=== PATIENT | male | born 1970 | race Caucasian/White ===

== ENCOUNTER 2019-06-05 19:22 | Inpatient (IN) | payer MEDICAID ==
[~2019-06-05] VITALS: Ht 175.3 cm; Wt 73.9 kg
[2019-06-05 19:32] VITALS: BP_SYST 129
[2019-06-05] MEDS ORDERED: VANCOMYCIN HCL 1,000 MG in D5W 250 ML IV ONE (20:00)
[2019-06-05] MEDS ORDERED: NACL 0.9% 1,000 ML IV ONE (20:00)
[2019-06-05] MEDS ORDERED: KETOROLAC TROMETHAMINE 15 MG VIAL IVP ONE (20:00)
[2019-06-05 21:03] LABS: BILIRUBIN,URINE NEGATIVE (NEGATIVE); CLARITY/URINE CLEAR (CLEAR); COLOR,URINE YELLOW (YELLOW); GLUCOSE,URINE NEGATIVE (NEGATIVE); KETONES,URINE NEGATIVE (NEGATIVE); LEUKOCYTE ESTERASE ,URINE NEGATIVE (NEGATIVE); NITRITE, URINE NEGATIVE (NEGATIVE); PH,URINE 5.5 (5.0-8.0); PROTEIN URINE NEGATIVE (NEGATIVE); UROBILINOGEN,URINE 0.2 (0.2-1.0)
[2019-06-05 21:15] LABS: BASOPHILS % (AUTO) 0.2 % (0.0-2.0); EOSINOPHILS # (AUTO) 0.1 K/uL (0.0-0.4); EOSINOPHILS % (AUTO) 0.7 % (0.0-4.0); HEMATOCRIT 31.3 % (36-54); HEMOGLOBIN 10.7 g/dL (14.0-18.0); LYMPHOCYTES # (AUTO) 0.5 K/uL (1.0-5.5); LYMPHOCYTES % (AUTO) 3.7 % (20.5-51.5); MEAN CORPUSCULAR HEMOGLOBIN 30 pg (27-31); MEAN CORPUSCULAR HGB CONC 34 % (32-36); MEAN CORPUSCULAR VOLUME 86 fL (79.0-98.0); MONOCYTES # (AUTO) 0.5 K/uL (0.0-1.0); NEUTROPHILS # (AUTO) 11.2 K/uL (1.8-7.7); NEUTROPHILS % (AUTO) 91.4 % (40.0-70.0); PLATELET COUNT (AUTO) 194 K/uL (130-430); RED BLOOD CELL COUNT(AUTO) 3.64 MIL/uL (4.2-6.2); RED CELL DISTRIBUTION WIDTH 13.7 % (9.0-15.0); WHITE BLOOD COUNT (AUTO) 12.2 K/uL (4.8-10.8)
[2019-06-05 21:16] LABS: BLOOD, URINE TRACE (NEGATIVE)
[2019-06-05 21:33] LABS: BACTERIA,URINE FEW /HPF (None Seen); RBC,URINE 0-3 /HPF (0-3); WBC,URINE NONE SEEN /HPF (0-3)
[2019-06-05 21:33] LABS: CALCIUM 8.1 mg/dL (8.4-11.0); CREATININE 0.84 mg/dL (0.55-1.30); POTASSIUM 3.9 mmol/L (3.5-5.1)
[2019-06-05 21:37] LABS: PROTHROMBIN TIME 9.9 SECS (9.5-12.5)
[2019-06-05 21:39] LABS: ALBUMIN 3.3 g/dL (3.4-4.8); TOTAL BILIRUBIN 0.4 mg/dL (0.0-1.0)
[2019-06-05] MEDS ORDERED: VANCOMYCIN HCL 1000 MG/VIAL IV ONE (23:25)
[2019-06-05] MEDS ORDERED: KETOROLAC TROMETHAMINE 15 MG VIAL ONE (23:29)
[2019-06-05] MEDS ORDERED: MET10 PO (23:50)
[2019-06-06 01:06] VITALS: BP_SYST 105
[2019-06-06] MEDS ORDERED: FLU VACC QS2019-20 36MOS UP/PF 60 MCG/0.5 ML SYRINGE I.M. PRN (02:00)
[2019-06-06] MEDS ORDERED: HYDROcodone/ACETAMIN 5-325 MG TAB (NORCO/ VICODIN) PO PRN (03:00)
[2019-06-06] MEDS ORDERED: ONDANSETRON HCL 4 MG/2 ML VIAL IVP PRN (03:00)
[2019-06-06] MEDS ORDERED: ACETAMINOPHEN 325 MG TABLET PO PRN (03:00)
[2019-06-06] MEDS ORDERED: ALBUTEROL SULFATE 0.083% 2.5 MG/3 ML VIAL.NEB INH PRN (03:00)
[2019-06-06 05:24] VITALS: BP_SYST 134
[2019-06-06] MEDS ORDERED: PIPERACILLIN/TAZO 3.375/DEX-IS 50 ML IV SCH (06:00)
[2019-06-06] MEDS ORDERED: PIPERACILLIN/TAZOBACTAM 3.375 GM/VIAL (ZOSYN) IV ONE (06:32)
[2019-06-06 06:57] LABS: BASOPHILS % (AUTO) 0.5 % (0.0-2.0); EOSINOPHILS # (AUTO) 0.2 K/uL (0.0-0.4); EOSINOPHILS % (AUTO) 3.2 % (0.0-4.0); HEMATOCRIT 28.8 % (36-54); HEMOGLOBIN 9.7 g/dL (14.0-18.0); LYMPHOCYTES # (AUTO) 1.1 K/uL (1.0-5.5); LYMPHOCYTES % (AUTO) 24.4 % (20.5-51.5); MEAN CORPUSCULAR HEMOGLOBIN 29 pg (27-31); MEAN CORPUSCULAR HGB CONC 34 % (32-36); MEAN CORPUSCULAR VOLUME 87 fL (79.0-98.0); MONOCYTES # (AUTO) 0.5 K/uL (0.0-1.0); MONOCYTES % (AUTO) 10.1 % (1.7-9.3); NEUTROPHILS # (AUTO) 2.9 K/uL (1.8-7.7); NEUTROPHILS % (AUTO) 61.8 % (40.0-70.0); PLATELET COUNT (AUTO) 163 K/uL (130-430); RED BLOOD CELL COUNT(AUTO) 3.32 MIL/uL (4.2-6.2); RED CELL DISTRIBUTION WIDTH 13.4 % (9.0-15.0); WHITE BLOOD COUNT (AUTO) 4.7 K/uL (4.8-10.8)
[2019-06-06 07:35] LABS: ALBUMIN 2.7 g/dL (3.4-4.8); CALCIUM 7.8 mg/dL (8.4-11.0); CREATININE 0.77 mg/dL (0.55-1.30); POTASSIUM 3.3 mmol/L (3.5-5.1); TOTAL BILIRUBIN 0.4 mg/dL (0.0-1.0)
[2019-06-06 07:54] VITALS: BP_SYST 103
[2019-06-06] MEDS: ENOXAPARIN SODIUM 40 MG/0.4 ML SYRINGE SUBCUT SCH (08:53)
[2019-06-06] MEDS: METHADONE HCL 10 MG TABLET PO SCH (08:53)
[2019-06-06] MEDS: VANCOMYCIN HCL 1,250 MG in NS 250 ML IV SCH ×2 (08:53→20:14)
[2019-06-06] MEDS: PIPERACILLIN/TAZO 3.375/DEX-IS 50 ML IV SCH ×3 (11:25→23:10)
[2019-06-06 12:32] VITALS: BP_SYST 106
[2019-06-06 16:16] VITALS: BP_SYST 114
[2019-06-06] MEDS: HYDROcodone/ACETAMIN 10-325 MG TAB PO PRN ×2 (17:51→23:11)
[2019-06-06 20:00] VITALS: BP_SYST 114
[2019-06-07 00:06] VITALS: BP_SYST 108
[2019-06-07] MEDS: PIPERACILLIN/TAZO 3.375/DEX-IS 50 ML IV SCH ×4 (05:05→23:31)
[2019-06-07 07:55] VITALS: BP_SYST 127
[2019-06-07] MEDS: METHADONE HCL 10 MG TABLET PO SCH (09:51)
[2019-06-07] MEDS: ENOXAPARIN SODIUM 40 MG/0.4 ML SYRINGE SUBCUT SCH (09:54)
[2019-06-07] MEDS: VANCOMYCIN HCL 1,250 MG in NS 250 ML IV SCH ×2 (09:57→20:31)
[2019-06-07 12:26] VITALS: BP_SYST 125
[2019-06-07] MEDS ORDERED: METHADONE HCL 10 MG TABLET PO ONE (12:30)
[2019-06-07 16:43] VITALS: BP_SYST 133
[2019-06-07] MEDS: LORazepam 2 MG/ML VIAL IVP PRN (23:31)
[2019-06-08 00:43] VITALS: BP_SYST 94
[2019-06-08] MEDS: PIPERACILLIN/TAZO 3.375/DEX-IS 50 ML IV SCH ×3 (05:24→17:02)
[2019-06-08] MEDS: LORazepam 2 MG/ML VIAL IVP PRN (05:24)
[2019-06-08 08:14] VITALS: BP_SYST 111
[2019-06-08] MEDS: VANCOMYCIN HCL 1,250 MG in NS 250 ML IV SCH ×2 (09:04→20:57)
[2019-06-08] MEDS: ENOXAPARIN SODIUM 40 MG/0.4 ML SYRINGE SUBCUT SCH (09:05)
[2019-06-08] MEDS: METHADONE HCL 10 MG TABLET PO SCH (09:22)
[2019-06-08 12:21] VITALS: BP_SYST 114
[2019-06-08 16:42] VITALS: BP_SYST 119
[2019-06-08 20:00] VITALS: BP_SYST 116
[2019-06-09 00:30] VITALS: BP_SYST 131
[2019-06-09] MEDS: PIPERACILLIN/TAZO 3.375/DEX-IS 50 ML IV SCH ×4 (00:43→17:18)
[2019-06-09] MEDS: ENOXAPARIN SODIUM 40 MG/0.4 ML SYRINGE SUBCUT SCH (08:38)
[2019-06-09] MEDS: METHADONE HCL 10 MG TABLET PO SCH (08:42)
[2019-06-09] MEDS: VANCOMYCIN HCL 1,250 MG in NS 250 ML IV SCH ×2 (08:53→21:58)
[2019-06-09] MEDS: LORazepam 2 MG/ML VIAL IVP PRN (08:53)
[2019-06-09 12:36] VITALS: BP_SYST 104
[2019-06-09 16:08] VITALS: BP_SYST 107
[2019-06-09 16:54] VITALS: BP_SYST 107
[2019-06-09 19:55] VITALS: BP_SYST 108
[2019-06-10] MEDS: PIPERACILLIN/TAZO 3.375/DEX-IS 50 ML IV SCH ×4 (00:25→18:01)
[2019-06-10 00:48] VITALS: BP_SYST 108
[2019-06-10 06:48] LABS: BASOPHILS % (AUTO) 0.5 % (0.0-2.0); EOSINOPHILS # (AUTO) 0.3 K/uL (0.0-0.4); EOSINOPHILS % (AUTO) 5.4 % (0.0-4.0); HEMATOCRIT 32.9 % (36-54); HEMOGLOBIN 11.1 g/dL (14.0-18.0); LYMPHOCYTES # (AUTO) 1.8 K/uL (1.0-5.5); LYMPHOCYTES % (AUTO) 32.8 % (20.5-51.5); MEAN CORPUSCULAR HEMOGLOBIN 29 pg (27-31); MEAN CORPUSCULAR HGB CONC 34 % (32-36); MEAN CORPUSCULAR VOLUME 87 fL (79.0-98.0); MONOCYTES # (AUTO) 0.5 K/uL (0.0-1.0); MONOCYTES % (AUTO) 9.4 % (1.7-9.3); NEUTROPHILS # (AUTO) 2.9 K/uL (1.8-7.7); NEUTROPHILS % (AUTO) 51.9 % (40.0-70.0); PLATELET COUNT (AUTO) 228 K/uL (130-430); RED BLOOD CELL COUNT(AUTO) 3.79 MIL/uL (4.2-6.2); RED CELL DISTRIBUTION WIDTH 13.7 % (9.0-15.0); WHITE BLOOD COUNT (AUTO) 5.5 K/uL (4.8-10.8)
[2019-06-10 07:18] LABS: ALBUMIN 2.8 g/dL (3.4-4.8); CALCIUM 7.6 mg/dL (8.4-11.0); CREATININE 0.95 mg/dL (0.55-1.30); POTASSIUM 4.4 mmol/L (3.5-5.1); TOTAL BILIRUBIN 0.3 mg/dL (0.0-1.0)
[2019-06-10] MEDS: METHADONE HCL 10 MG TABLET PO SCH (10:22)
[2019-06-10] MEDS: ENOXAPARIN SODIUM 40 MG/0.4 ML SYRINGE SUBCUT SCH (10:27)
[2019-06-10 11:29] VITALS: BP_SYST 116
[2019-06-10] MEDS: VANCOMYCIN HCL 1,250 MG in NS 250 ML IV SCH ×2 (13:39→22:32)
[2019-06-10 15:44] VITALS: BP_SYST 123
[2019-06-10 19:00] VITALS: BP_SYST 124
[2019-06-10 20:00] VITALS: BP_SYST 124
[2019-06-10] MEDS ORDERED: LORazepam 2 MG/ML VIAL IVP ONE (23:15)
[2019-06-11] MEDS: PIPERACILLIN/TAZO 3.375/DEX-IS 50 ML IV SCH ×5 (00:18→23:52)
[2019-06-11 00:28] VITALS: BP_SYST 105
[2019-06-11] MEDS: VANCOMYCIN HCL 1,250 MG in NS 250 ML IV SCH ×2 (09:04→20:46)
[2019-06-11] MEDS: METHADONE HCL 10 MG TABLET PO SCH (09:06)
[2019-06-11] MEDS: ENOXAPARIN SODIUM 40 MG/0.4 ML SYRINGE SUBCUT SCH (09:13)
[2019-06-11 12:46] VITALS: BP_SYST 100
[2019-06-11 16:32] VITALS: BP_SYST 108
[2019-06-11 20:00] VITALS: BP_SYST 116
[2019-06-12] VITALS: BP_SYST 120
[2019-06-12] MEDS: PIPERACILLIN/TAZO 3.375/DEX-IS 50 ML IV SCH ×2 (05:36→12:59)
[2019-06-12 09:08] VITALS: BP_SYST 129
[2019-06-12] MEDS: VANCOMYCIN HCL 1,250 MG in NS 250 ML IV SCH (09:15)
[2019-06-12] MEDS: METHADONE HCL 10 MG TABLET PO SCH (09:15)
[2019-06-12] MEDS: ENOXAPARIN SODIUM 40 MG/0.4 ML SYRINGE SUBCUT SCH (09:27)
[2019-06-12 10:38] VITALS: BP_SYST 129
[2019-06-12 12:15] VITALS: BP_SYST 122
[2019-06-12] MEDS ORDERED: ceFAZolin SODIUM 1 GM in D5W 50 ML IV SCH (14:00)
[2019-06-12 16:10] VITALS: BP_SYST 106
[2019-06-12 20:00] VITALS: BP_SYST 114
[2019-06-13 00:35] VITALS: BP_SYST 106
[2019-06-13] MEDS: ceFAZolin SODIUM 1 GM in D5W 50 ML IV SCH ×2 (02:28→05:20)
[2019-06-13 08:00] VITALS: BP_SYST 117
[2019-06-13] MEDS: METHADONE HCL 10 MG TABLET PO SCH (08:43)
[2019-06-13] MEDS: ENOXAPARIN SODIUM 40 MG/0.4 ML SYRINGE SUBCUT SCH (08:44)
[2019-06-13] MEDS ORDERED: CEPH-568 PO (10:36)
[2019-06-13 11:31] VITALS: BP_SYST 109
[2019-06-13 12:28] VITALS: BP_SYST 111
== END 2019-06-13 13:13 | disposition home or self-care (01) | DRG 720 ==
LOC: SED 19:22 → SMU 06-06 00:18
PROVIDERS: ADMIT Internal Medicine Hospice and Palliative Medicine; ATTEND Internal Medicine Hospice and Palliative Medicine
PROC: 06HY33Z Insertion of Infusion Device into Lower Vein, Percutaneous Approach (ICD-10-PCS; principal; 2019-06-05)
PROC: B54CZZA Ultrasonography of Left Lower Extremity Veins, Guidance (ICD-10-PCS; 2019-06-05)
DX: A41.9 Sepsis, unspecified organism (principal); E43 Unspecified severe protein-calorie malnutrition; E11.51 Type 2 diabetes mellitus with diabetic peripheral angiopathy without gangrene; F11.20 Opioid dependence, uncomplicated; E87.1 Hypo-osmolality and hyponatremia; F15.20 Other stimulant dependence, uncomplicated; L03.115 Cellulitis of right lower limb; E78.5 Hyperlipidemia, unspecified; F17.210 Nicotine dependence, cigarettes, uncomplicated; B19.20 Unspecified viral hepatitis C without hepatic coma; G89.29 Other chronic pain; R21 Rash and other nonspecific skin eruption; L03.116 Cellulitis of left lower limb; I10 Essential (primary) hypertension; I99.8 Other disorder of circulatory system; Z89.421 Acquired absence of other right toe(s); Z59.0 Homelessness; Z71.6 Tobacco abuse counseling
CPT/HCPCS: 36415; 71045; 76700-TC; 80053; 80202-TC; 81000-TC; 83605; 85025; 85379; 85610-TC; 85730-TC; 87040-TC; 93005; 93970; 94760; 96365; 96375; 99285; C1751; J0690; J1650; J1885; J2060; J2405; J2543; J3370; J7030; J7050; J7060